=== PATIENT | male | born 1960 | race Caucasian/White ===

== ENCOUNTER 2021-01-31 14:16 | Outpatient (CLI) | payer OTHER | END 2021-01-31 14:17 | disposition home or self-care (01) | LOC: NAV RAD 14:16 | PROVIDERS: ATTEND Family Medicine | DX: M35.00 Sjogren syndrome, unspecified (principal); N18.30 Chronic kidney disease, stage 3 unspecified; M32.14 Glomerular disease in systemic lupus erythematosus; M17.0 Bilateral primary osteoarthritis of knee | CPT/HCPCS: 73565 ==